=== PATIENT | female | born 1955 | race Caucasian/White ===

== ENCOUNTER 2021-02-18 10:08 | Emergency (ER) | payer OTHER ==
--- NOTE | 2021-02-18 10:30 | ED Physician Documentation ---
PD HPI Fall - Stated complaint Stated Complaint: GLF - Chief complaint Chief Complaint: Trauma Hd/Nk - History obtained from History obtained from: Patient, EMS - History of Present Illness Mechanism of injury: Tripped, Lost balance (walking down some steps) Fall distance: Standing position Where injury occurred: Work Timing - onset: Today Injury(ies) location: Head (back of head swelling and tender), Right Lower Extremity (abrasion anterior knee), Left Lower Extremity (inversion/twisting of ankle) Associated symptoms: No: LOC, AMS, Amnesia, Neck pain Worsens with: Movement, Palpation (tender scalp and also left ankle hurts with palpation and ROM, walking.) Contributing factors: No: Anticoagulated, Intoxicated Similar symptoms before: Has not had sx before Recently seen: Not recently seen Review of Systems Constitutional: denies: Fever, Chills Nose: denies: Rhinorrhea / runny nose, Congestion Throat: denies: Sore throat Respiratory: denies: Cough Skin: reports: Abrasion (s) (right knee) Musculoskeletal: denies: Neck pain, Back pain Neurologic: reports: Headache (at contusion area), Head injury. denies: Focal weakness, Numbness, Confused, Altered mental status, LOC PD PAST MEDICAL HISTORY - Past Medical History Cardiovascular: None Respiratory: None Neuro: None Endocrine/Autoimmune: None - Present Medications Home Medications: Ambulatory Orders Medication Instructions Recorded Confirmed Losartan [Cozaar] 1 tab PO DAILY 02/18/21 02/18/21 - Allergies Allergies/Adverse Reactions: Allergies Allergy/AdvReac Type Severity Reaction Status Date / Time No Known Drug Allergies Allergy Verified 02/18/21 10:21 PD ED PE NORMAL - Vitals Vital signs reviewed: Yes - General General: Alert and oriented X 3, No acute distress, Well developed/nourished - HEENT HEENT: Other (right occipital scalp with 3-4 cm area of swelling and tender. No bleeding. ) - Neck Neck: Supple, no meningeal sign, No bony TTP - Respiratory Respiratory: Clear bilaterally, Other (no chestwall tenderness.) - Abdomen Abdomen: Soft, Non tender - Back Back: No spinal TTP - Derm Derm: Normal color, Warm and dry - Extremities Extremities: Other (right knee full ROM. no effusion. no bony tenderness. abrasion anteriorly. Left ankle with lateral tenderness and pain with inversion stress. No noted laxity per se. Good color and cap refill in toes. ) - Neuro Neuro: Alert and oriented X 3, No motor deficit, No sensory deficit, Normal speech Eye Opening: Spontaneous Motor: Obeys Commands Verbal: Oriented GCS Score: 15 Results - Vitals Vitals: Vital Signs - 24 hr 02/18/21 02/18/21 02/18/21 10:08 10:30 11:57 Temperature 37.6 C 36.2 C L Heart Rate 79 81 63 Respiratory 16 95 H 16 Rate Blood Pressure 156/106 H 139/99 H 136/84 H O2 Saturation 95 96 98 02/18/21 13:03 Temperature Heart Rate 80 Respiratory 16 Rate Blood Pressure 136/82 H O2 Saturation 99 Oxygen O2 Source Room air - Rads (name of study) head CT Radiology: Prelim report reviewed (no ICH nor fractures), See rad report left ankle Radiology: Prelim report reviewed (no fractures. ), See rad report PD MEDICAL DECISION MAKING - ED course Complexity details: reviewed results, considered differential, d/w patient Departure - Departure Disposition: 01 Home, Self Care Clinical Impression: Accidental fall Qualifiers: Encounter type: initial encounter Qualified Code(s): W19.XXXA - Unspecified fall, initial encounter Scalp contusion Qualifiers: Encounter type: initial encounter Qualified Code(s): S00.03XA - Contusion of scalp, initial encounter Ankle sprain Qualifiers: Encounter type: initial encounter Involved ligament of ankle: unspecified ligament Laterality: left Qualified Code(s): S93.402A - Sprain of unspecified ligament of left ankle, initial encounter Knee abrasion Qualifiers: Encounter type: initial encounter Laterality: right Qualified Code(s): S80.211A - Abrasion, right knee, initial encounter Condition: Stable Record reviewed to determine appropriate education?: Yes Instructions: ED Contusion Scalp, ED Sprain Ankle Comments: Minimal standing and walking for the next 3 to 5 days due to ankle sprain. Use the Aircast ankle support when ambulatory for the next 2 to 3 weeks until fully healed. Cool towels or ice to the scalp swelling to reduce swelling today. Tylenol or ibuprofen if needed for pains. Forms: Activity restrictions Discharge Date/Time: 02/18/21 13:04
--- NOTE | 2021-02-18 11:00 | XRAY Report ---
PROCEDURE: Ankle 3 View LT INDICATIONS: fall with lateral ankle injury TECHNIQUE: 3 views of the ankle were acquired. COMPARISON: None FINDINGS: Bones: No fractures or dislocations. Ankle mortise is normally aligned. No suspicious bony lesions . Soft tissues: No tibiotalar joint effusion. Achilles tendon appears normal. Slight soft tissue swe lling over the lateral malleolus. IMPRESSION: A fracture or malalignment is not found. Mild soft tissue swelling appears present over the lateral malleolus. Reviewed by: Kranthi Nayak MD on 02/18/2021 10:59 AM PDT Approved by: Kranthi Nayak MD on 02/18/2021 10:59 AM PDT Station ID: [id number]
--- NOTE | 2021-02-18 11:36 | CT Report ---
PROCEDURE: HEAD WO INDICATIONS: fall with struck head; contusion right posterior TECHNIQUE: Noncontrast 4.5 mm thick angled axial sections acquired from the foramen magnum to the vertex. For r adiation dose reduction, the following was used: automated exposure control, adjustment of mA and/or kV according to patient size. COMPARISON: None. FINDINGS: Image quality: Excellent. CSF spaces: Basal cisterns are patent. No extra-axial fluid collections. Ventricles are normal in size and shape. Brain: No midline shift. No intracranial masses or hemorrhage. Monge-white matter interface is norm al. Skull and face: Calvarium and visualized facial bones are intact, without suspicious lesions. Right parietal scalp hematoma. Sinuses: Visualized sinuses and mastoids are clear. IMPRESSION: 1. No acute intracranial process. 2. Right parietal scalp hematoma. Reviewed by: Pia Luu MD on 02/18/2021 11:35 AM PDT Approved by: Pia Luu MD on 02/18/2021 11:35 AM PDT Station ID: [id number]
[2021-02-18 13:04] VITALS: BP 136/82
== END 2021-02-18 13:04 | disposition home or self-care (01) ==
LOC: ED 10:08
DX: S00.03XA Contusion of scalp, initial encounter (principal); S80.211A Abrasion, right knee, initial encounter; S93.402A Sprain of unspecified ligament of left ankle, initial encounter; W10.8XXA Fall (on) (from) other stairs and steps, initial encounter; Y93.01 Activity, walking, marching and hiking; Y99.0 Civilian activity done for income or pay
CPT/HCPCS: 99282; 99284